=== PATIENT | male | born 1970 | race Hispanic/Latino ===

== ENCOUNTER 2019-01-05 08:13 | Emergency (ER) | payer SELFPAY ==
[~2019-01-05] VITALS: Ht 160 cm; Wt 77.1 kg
[2019-01-05 08:38] LABS: BASOPHILS % 0.5 % (0.0-1.0); EOSINOPHILS # (AUTO) 0.3 (0.0-0.4); EOSINOPHILS % 3.5 % (0.0-6.0); HEMATOCRIT 45.3 % (38.2-49.6); HEMOGLOBIN 15.5 g/dL (14.0-18.0); LYMPHOCYTES # (AUTO) 1.1 (1.0-3.2); LYMPHOCYTES % 12.4 % (18.0-39.1); MEAN CORPUSCULAR HEMOGLOBIN 31.5 pg (28-32); MEAN CORPUSCULAR HGB CONC 34.2 g/dL (31-35); MEAN CORPUSCULAR VOLUME 92.1 fL (81-99); MONOCYTES # (AUTO) 0.7 (0.2-0.8); MONOCYTES % 7.9 % (4.4-11.3); NEUTROPHILS # (AUTO) 6.4 (2.1-6.9); NEUTROPHILS % 75.6 % (38.7-80.0); PLATELET COUNT 177 x10e3/uL (140-360); RED BLOOD COUNT 4.92 x10e6/uL (4.3-5.7); RED CELL DISTRIBUTION WIDTH 12.4 % (11.7-14.4)
[2019-01-05] MEDS ORDERED: DONNATAL/LIDOCAINE/MAALOX 30 ML SUSP PO ONE (09:00)
[2019-01-05] MEDS ORDERED: ASPIRIN 81 MG CHEW TAB PO ONE (09:00)
[2019-01-05] MEDS ORDERED: FAMOTIDINE 20 MG/2 ML VIAL IV ONE (09:00)
[2019-01-05] MEDS ORDERED: AMLODIPINE BESYLATE 10 MG TAB PO ONE (09:00)
[2019-01-05 09:07] LABS: ALANINE AMINOTRANSFERASE 51 IU/L (0-55); ALBUMIN 3.9 g/dL (3.5-5.0); ALBUMIN/GLOBULIN RATIO 1.1 (0.8-2.0); ALKALINE PHOSPHATASE 107 IU/L (40-150); ANION GAP 11.5 mmol/L (8-16); BLOOD UREA NITROGEN 11 mg/dL (7-26); BUN/CREATININE RATIO 14 (6-25); CALCIUM 8.8 mg/dL (8.4-10.2); CARBON DIOXIDE 27 mmol/L (22-29); CHLORIDE 105 mmol/L (98-107); CREATININE, SERUM 0.79 mg/dL (0.72-1.25); EST GLOMERULAR FILTRATION RATE > 60 ML/MIN (60-); GLUCOSE 104 mg/dL (74-118); LIPASE 21 U/L (8-78); POTASSIUM 3.5 mmol/L (3.5-5.1); SODIUM 140 mmol/L (136-145)
[2019-01-05] MEDS ORDERED: PEPCID20 MG PO (10:06)
[2019-01-05] MEDS ORDERED: NORVASC5 MG PO (10:09)
[2019-01-05 10:25] VITALS: BP 193/116
== END 2019-01-05 10:28 | disposition home or self-care (01) ==
LOC: ER 08:13
DX: R10.9 Unspecified abdominal pain (principal); K29.70 Gastritis, unspecified, without bleeding; R94.31 Abnormal electrocardiogram [ECG] [EKG]; I10 Essential (primary) hypertension; F17.210 Nicotine dependence, cigarettes, uncomplicated
CPT/HCPCS: 36415; 80053; 83690; 84484; 85025; 93005; 99284

== ENCOUNTER 2024-02-21 13:58 | Inpatient (IN) | payer SELFPAY ==
[~2024-02-21] VITALS: Ht 160 cm; Wt 77.1 kg
[~2024-02-21 13:58] MED LIST: NORVASC5 MG PO; PEPCID20 MG PO
[2024-02-21 14:17] VITALS: PULSE 66; RESP 17; TEMP 97.9
[2024-02-21 14:58] LABS: BASOPHILS % 0.5 % (0.0-1.0); EOSINOPHILS # (AUTO) 0.1 (0.0-0.4); EOSINOPHILS % 1.9 % (0.0-6.0); HEMATOCRIT 46.6 % (38.2-49.6); HEMOGLOBIN 15.4 g/dL (14.0-18.0); LYMPHOCYTES # (AUTO) 1.8 (1.0-3.2); LYMPHOCYTES % 30.4 % (18.0-39.1); MEAN CORPUSCULAR HEMOGLOBIN 30.2 pg (28-32); MEAN CORPUSCULAR VOLUME 91.4 fL (81-99); MONOCYTES # (AUTO) 0.4 (0.2-0.8); MONOCYTES % 6.5 % (4.4-11.3); NEUTROPHILS # (AUTO) 3.5 (2.1-6.9); NEUTROPHILS % 60.4 % (38.7-80.0); PLATELET COUNT 174 x10e3/uL (140-360); RED CELL DISTRIBUTION WIDTH 12.1 % (11.7-14.4); WHITE BLOOD COUNT 5.85 x10e3/uL (4.8-10.8)
[2024-02-21 15:14] LABS: ALBUMIN 3.9 g/dL (3.5-5.0); ALBUMIN/GLOBULIN RATIO 1.1 (0.8-2.0); ANION GAP 16.4 mmol/L (8-16); BILIRUBIN,TOTAL 0.5 mg/dL (0.2-1.2); CALCIUM 9.3 mg/dL (8.4-10.2); CREATININE, SERUM 0.97 mg/dL (0.72-1.25); POTASSIUM 3.4 mmol/L (3.5-5.1); TOTAL PROTEIN 7.6 g/dL (6.5-8.1)
[2024-02-21] MEDS: HYDRALAZINE HCL 20 MG/ML VIAL IV STA (16:01)
[2024-02-21] MEDS ORDERED: SODIUM CHLORIDE FLUSH 10 ML SYR INJ PRN (17:15)
[2024-02-21 20:00] VITALS: BP 166/105; PULSE 65; RESP 20; TEMP 98; O2SAT 100
[2024-02-21 21:00] VITALS: BP 166/105; PULSE 65; RESP 20; TEMP 98; O2SAT 100
[2024-02-21] MEDS: ACETAMINOPHEN 325 MG TAB PO PRN (21:52)
[2024-02-21] MEDS: HYDRALAZINE HCL 20 MG/ML VIAL IV PRN (21:53)
[2024-02-21] MEDS ORDERED: DEXTROSE 50% SYRINGE 50 ML IV PRN (23:00)
[2024-02-21 23:02] LABS: AMPHETAMINES SCREEN,URINE NEGATIVE (NEGATIVE); BENZODIAZEPINES SCREEN,URINE NEGATIVE (NEGATIVE); CANNABINOIDS SCREEN,URINE NEGATIVE (NEGATIVE); COCAINE SCREEN,URINE NEGATIVE (NEGATIVE); METHADONE SCREEN, URINE NEGATIVE (NEGATIVE); OPIATES SCREEN,URINE NEGATIVE (NEGATIVE); PHENCYCLIDINE SCREEN,URINE NEGATIVE (NEGATIVE)
[2024-02-21 23:03] LABS: BILIRUBIN,URINE NEGATIVE (NEGATIVE); CLARITY,URINE CLEAR (CLEAR); COLOR,URINE YELLOW (YELLOW); GLUCOSE, URINE 500 (NEGATIVE); KETONES,URINE 1+ (NEGATIVE); LEUKOCYTE ESTERASE ,URINE NEGATIVE (NEGATIVE); NITRITE,URINE NEGATIVE (NEGATIVE); PH,URINE 6 (5 - 7); PROTEIN,URINE DIPSTICK 2+ (NEGATIVE); URINE UROBILINOGEN 0.2 mg/dL (0.2 - 1)
[2024-02-21 23:06] LABS: BACTERIA,URINE MANY /HPF; EPITHELIAL CELLS,URINE FEW /LPF
[2024-02-22] VITALS (10 sets, daily range): BP systolic 135–182; BP diastolic 91–112; PULSE 77–109; RESP 16–20; TEMP 98.4–101.3; O2SAT 98–100
[2024-02-22 05:47] LABS: BASOPHILS % 0.6 % (0.0-1.0); EOSINOPHILS # (AUTO) 0.2 (0.0-0.4); EOSINOPHILS % 2.6 % (0.0-6.0); HEMATOCRIT 46.8 % (38.2-49.6); HEMOGLOBIN 15.5 g/dL (14.0-18.0); LYMPHOCYTES % 30.6 % (18.0-39.1); MEAN CORPUSCULAR HEMOGLOBIN 30.3 pg (28-32); MEAN CORPUSCULAR HGB CONC 33.1 g/dL (31-35); MEAN CORPUSCULAR VOLUME 91.6 fL (81-99); MONOCYTES # (AUTO) 0.4 (0.2-0.8); MONOCYTES % 5.9 % (4.4-11.3); PLATELET COUNT 184 x10e3/uL (140-360); RED BLOOD COUNT 5.11 x10e6/uL (4.3-5.7); RED CELL DISTRIBUTION WIDTH 12.2 % (11.7-14.4); WHITE BLOOD COUNT 6.63 x10e3/uL (4.8-10.8)
[2024-02-22 06:18] LABS: ALBUMIN 3.7 g/dL (3.5-5.0); ALBUMIN/GLOBULIN RATIO 1.1 (0.8-2.0); ANION GAP 12.3 mmol/L (8-16); BILIRUBIN,TOTAL 0.6 mg/dL (0.2-1.2); CALCIUM 9.2 mg/dL (8.4-10.2); CREATININE, SERUM 1.06 mg/dL (0.72-1.25)
[2024-02-22 06:19] LABS: POTASSIUM 3.3 mmol/L (3.5-5.1)
[2024-02-22 06:41] LABS: MAGNESIUM 1.8 MG/DL (1.3-2.1)
[2024-02-22 07:02] LABS: THYROID STIMULATING HORMONE 0.586 uIU/mL (0.350-4.940)
[2024-02-22] MEDS: LOSARTAN POTASSIUM 25 MG TAB PO SCH (08:37)
[2024-02-22] MEDS: METFORMIN HCL 500 MG TAB PO SCH (08:37)
[2024-02-22] MEDS: INSULIN LISPRO 100 UNIT/1 ML 3ML VIAL SQ SCH (08:38)
[2024-02-22] MEDS ORDERED: AMLODIPINE BESYLATE 5 MG TAB PO SCH (09:00)
[2024-02-22] MEDS: POTASSIUM CHLORIDE 10MEQ EA PO ONE (12:40)
[2024-02-22] MEDS: CLONIDINE HCL 0.1 MG TAB PO PRN (12:41)
[2024-02-22] MEDS: TAMSULOSIN HCL 0.4 MG CAP PO SCH (12:41)
[2024-02-22] MEDS: NPH, HUMAN INSULIN ISOPHANE 100 UNIT/1 ML 3ML VIAL SQ SCH (16:35)
[2024-02-22] MEDS: ATORVASTATIN 40 MG TAB PO SCH (21:31)
[2024-02-23 04:54] LABS: BASOPHILS % 0.5 % (0.0-1.0); EOSINOPHILS # (AUTO) 0.1 (0.0-0.4); EOSINOPHILS % 1.7 % (0.0-6.0); HEMATOCRIT 46.5 % (38.2-49.6); HEMOGLOBIN 15.2 g/dL (14.0-18.0); LYMPHOCYTES # (AUTO) 2.7 (1.0-3.2); LYMPHOCYTES % 36.4 % (18.0-39.1); MEAN CORPUSCULAR HEMOGLOBIN 30.2 pg (28-32); MEAN CORPUSCULAR HGB CONC 32.7 g/dL (31-35); MEAN CORPUSCULAR VOLUME 92.3 fL (81-99); MONOCYTES # (AUTO) 0.6 (0.2-0.8); NEUTROPHILS % 53.1 % (38.7-80.0); PLATELET COUNT 180 x10e3/uL (140-360); RED BLOOD COUNT 5.04 x10e6/uL (4.3-5.7); RED CELL DISTRIBUTION WIDTH 12.3 % (11.7-14.4); WHITE BLOOD COUNT 7.52 x10e3/uL (4.8-10.8)
[2024-02-23 05:00] VITALS: BP 140/90; PULSE 95; RESP 20; TEMP 98.8; O2SAT 99
[2024-02-23 05:21] LABS: ALBUMIN 3.5 g/dL (3.5-5.0); ALBUMIN/GLOBULIN RATIO 1.1 (0.8-2.0); ANION GAP 14.8 mmol/L (8-16); BILIRUBIN,TOTAL 0.5 mg/dL (0.2-1.2); CALCIUM 9.5 mg/dL (8.4-10.2); CREATININE, SERUM 1.25 mg/dL (0.72-1.25); POTASSIUM 3.8 mmol/L (3.5-5.1); TOTAL PROTEIN 6.8 g/dL (6.5-8.1)
[2024-02-23 07:33] VITALS: BP 136/92; PULSE 81; RESP 16; TEMP 98.5; O2SAT 98
[2024-02-23 09:00] VITALS: BP 136/92; PULSE 81; RESP 16; TEMP 98.5; O2SAT 98
[2024-02-23 12:32] VITALS: BP 169/101; PULSE 91; RESP 16; TEMP 98.6; O2SAT 99
[2024-02-23] MEDS ORDERED: LANCET 30G-GLU1 EACH SC (15:43)
[2024-02-23] MEDS ORDERED: CLONIDINE HCL0.1 MG PO (15:43)
[2024-02-23] MEDS ORDERED: METFORMIN HCL500 MG PO (15:43)
[2024-02-23] MEDS ORDERED: NOVOLIN N100 UNIT/1 SC (15:43)
[2024-02-23] MEDS ORDERED: FLOMAX0.4 MG PO (15:43)
[2024-02-23] MEDS ORDERED: BLOOD GLUCOSE1 EAC1 SC (15:43)
[2024-02-23] MEDS ORDERED: ATORVASTATIN CA40 MG PO (15:43)
[2024-02-23] MEDS ORDERED: CEFDINIR300 MG PO (15:43)
[2024-02-23 16:00] VITALS: BP 153/103; PULSE 84; RESP 16; TEMP 98.8; O2SAT 99
[2024-02-23] MEDS: NPH, HUMAN INSULIN ISOPHANE 100 UNIT/1 ML 3ML VIAL SQ SCH (17:00)
[2024-02-23] MEDS: LOSARTAN POTASSIUM 25 MG TAB PO SCH (18:17)
[2024-02-23 20:00] VITALS: BP 149/100; PULSE 84; RESP 16; TEMP 98.8; O2SAT 99
[2024-02-24] VITALS (8 sets, daily range): BP systolic 141–158; BP diastolic 95–101; PULSE 75–98; RESP 18–20; TEMP 98.1–98.5; O2SAT 97–99
[2024-02-24 07:01] LABS: BASOPHILS % 0.4 % (0.0-1.0); EOSINOPHILS # (AUTO) 0.1 (0.0-0.4); EOSINOPHILS % 1.9 % (0.0-6.0); HEMATOCRIT 43.2 % (38.2-49.6); HEMOGLOBIN 14.9 g/dL (14.0-18.0); LYMPHOCYTES # (AUTO) 1.3 (1.0-3.2); LYMPHOCYTES % 23.2 % (18.0-39.1); MEAN CORPUSCULAR HEMOGLOBIN 30.1 pg (28-32); MEAN CORPUSCULAR HGB CONC 34.5 g/dL (31-35); MEAN CORPUSCULAR VOLUME 87.3 fL (81-99); MONOCYTES # (AUTO) 0.5 (0.2-0.8); MONOCYTES % 9.3 % (4.4-11.3); NEUTROPHILS # (AUTO) 3.7 (2.1-6.9); NEUTROPHILS % 64.8 % (38.7-80.0); PLATELET COUNT 182 x10e3/uL (140-360); RED BLOOD COUNT 4.95 x10e6/uL (4.3-5.7); RED CELL DISTRIBUTION WIDTH 12.5 % (11.7-14.4); WHITE BLOOD COUNT 5.69 x10e3/uL (4.8-10.8)
[2024-02-24 07:24] LABS: ANION GAP 14.6 mmol/L (8-16); CREATININE, SERUM 0.82 mg/dL (0.72-1.25); POTASSIUM 3.6 mmol/L (3.5-5.1)
[2024-02-24] MEDS: LOSARTAN POTASSIUM 25 MG TAB PO SCH (12:20)
[2024-02-24] MEDS ORDERED: LOSARTAN POTASS25 MG PO (14:05)
== END 2024-02-24 15:17 | disposition home or self-care (01) | DRG 305 ==
LOC: ER 14:40 → ERHOLD 17:01 → MED/SURG 18:43 → OBSVTOIN 02-22 11:32
PROVIDERS: ADMIT Internal Medicine; ATTEND Internal Medicine
DX: I16.0 Hypertensive urgency (principal); N39.0 Urinary tract infection, site not specified; I12.9 Hypertensive chronic kidney disease with stage 1 through stage 4 chronic kidney disease, or unspecified chronic kidney disease; E11.22 Type 2 diabetes mellitus with diabetic chronic kidney disease; E11.65 Type 2 diabetes mellitus with hyperglycemia; N18.2 Chronic kidney disease, stage 2 (mild); R31.9 Hematuria, unspecified; N40.1 Benign prostatic hyperplasia with lower urinary tract symptoms; R39.16 Straining to void; R35.1 Nocturia; Z79.84 Long term (current) use of oral hypoglycemic drugs; Z79.4 Long term (current) use of insulin; F17.210 Nicotine dependence, cigarettes, uncomplicated
CPT/HCPCS: 36415; 70450; 71045; 80048; 80053; 80307; 81001; 82948; 83036; 83735; 84443; 84484; 85025; 87086; 93005; 99284; G0378; J0360; J0696